=== PATIENT | male | born 1980 | race Hispanic/Latino ===

== ENCOUNTER 2019-02-15 12:24 | Emergency (ER) | payer BC, OTHER ==
[2019-02-15] MEDS ORDERED: KETOROLAC TROMETHAMINE 60 MG/2 ML VIAL ONE (12:51)
[2019-02-15 13:33] LABS: APPEARANCE,URINE Clear (CLEAR); BILIRUBIN,URINE Negative (NEGATIVE); COLOR,URINE Yellow (YELLOW); GLUCOSE, URINE (UA) Negative (NEGATIVE); KETONES,URINE Negative (NEGATIVE); LEUKOCYTE ESTERASE ,URINE Negative (NEGATIVE); NITRATE,URINE Negative (NEGATIVE); OCCULT BLOOD,URINE Negative (NEGATIVE); PROTEIN,URINE Negative (NEGATIVE); UROBILINOGEN,URINE 0.2 mg/dL (0.2-1.0)
[2019-02-15 13:40] LABS: AMPHET/METH SCREEN,URINE NEGATIVE (NEGATIVE); BARBITURATE SCREEN, URINE NEGATIVE (NEGATIVE); BENZODIAZEPINES SCREEN,URINE NEGATIVE (NEGATIVE); CANNABINOID SCREEN,URINE NEGATIVE (NEGATIVE); COCAINE SCREEN,URINE NEGATIVE (NEGATIVE); OPIATE SCREEN,URINE NEGATIVE (NEGATIVE); PHENCYCLIDINE SCREEN,URINE NEGATIVE (NEGATIVE)
[2019-02-15] MEDS ORDERED: LORATADINE 10 MG TABLET ONE (14:22)
== END 2019-02-15 15:25 | disposition home or self-care (01) ==
LOC: EDH 12:24
DX: M43.16 Spondylolisthesis, lumbar region (principal); E11.9 Type 2 diabetes mellitus without complications; I10 Essential (primary) hypertension; Z98.890 Other specified postprocedural states; Z88.8 Allergy status to other drugs, medicaments and biological substances; Z87.891 Personal history of nicotine dependence
CPT/HCPCS: 74176; 80305; 81003; 96372; 99285; J1885

== ENCOUNTER 2021-06-14 18:09 | Emergency (ER) | payer BC, OTHER ==
[~2021-06-14] VITALS: Ht 185.4 cm; Wt 170.1 kg
[2021-06-14 18:53] LABS: BASOPHILS % (AUTO) 0.3 % (0.0-5.0); EOSINOPHILS % (AUTO) 0.8 % (0.0-8.0); HEMATOCRIT 42.3 % (42-54); LYMPHOCYTES % (AUTO) 31.4 % (21.0-51.0); MEAN CORPUSCULAR VOLUME 85.1 fL (79-99); MONOCYTES % (AUTO) 6.5 % (3.0-13.0); NEUTROPHILS % (AUTO) 60.6 % (40.0-77.0); PLATELET COUNT (AUTO) 252 K/uL (130-400); RED BLOOD CELL COUNT(AUTO) 4.97 MIL/uL (4.50-6.20); RED CELL DISTRIBUTION WIDTH 13.2 % (11.0-15.5)
[2021-06-14 19:01] LABS: CREATININE 1.1 mg/dL (0.5-1.5); POTASSIUM 3.8 mmol/L (3.5-5.1)
[2021-06-14 19:06] LABS: ALBUMIN 3.7 g/dL (3.5-5.0); BILIRUBIN,TOTAL 0.3 mg/dL (0.2-1.0); CRP QUANTITATIVE 5.7 mg/L (0.00-9.0); TOTAL PROTEIN, SERUM 7.8 g/dL (6.0-8.3)
[2021-06-14 20:16] VITALS: BP 126/73
== END 2021-06-14 20:44 | disposition home or self-care (01) ==
LOC: EDH 18:09
DX: K42.9 Umbilical hernia without obstruction or gangrene (principal); E11.9 Type 2 diabetes mellitus without complications; E66.9 Obesity, unspecified; Z68.42 Body mass index [BMI] 45.0-49.9, adult; Z88.8 Allergy status to other drugs, medicaments and biological substances
CPT/HCPCS: 36415; 74176; 80053; 85025; 86140

== ENCOUNTER 2022-08-05 09:50 | Emergency (ER) | payer OTHER ==
[~2022-08-05] VITALS: Ht 185.4 cm; Wt 150.1 kg
[2022-08-05 10:17] LABS: BASOPHILS % (AUTO) 0.5 % (0.0-5.0); EOSINOPHILS % (AUTO) 1.7 % (0.0-8.0); HEMATOCRIT 47.2 % (42-54); LYMPHOCYTES % (AUTO) 36.1 % (21.0-51.0); MEAN CORPUSCULAR HEMOGLOBIN 29.3 pg (27.0-33.0); MEAN CORPUSCULAR VOLUME 83.7 fL (79-99); MONOCYTES % (AUTO) 5.6 % (3.0-13.0); NEUTROPHILS % (AUTO) 55.9 % (40.0-77.0); PLATELET COUNT (AUTO) 291 K/uL (130-400); RED BLOOD CELL COUNT(AUTO) 5.64 MIL/uL (4.50-6.20); RED CELL DISTRIBUTION WIDTH 13.5 % (11.0-15.5); WHITE BLOOD COUNT (AUTO) 8.2 K/uL (4.8-10.8)
[2022-08-05 10:27] LABS: CREATININE 0.9 mg/dL (0.5-1.5); POTASSIUM 3.9 mmol/L (3.5-5.1)
[2022-08-05 10:32] LABS: ALBUMIN 3.8 g/dL (3.5-5.0)
[2022-08-05 10:41] LABS: APPEARANCE,URINE SL CLOUDY (CLEAR); BILIRUBIN,URINE NEGATIVE (NEGATIVE); COLOR,URINE YELLOW (YELLOW); GLUCOSE, URINE (UA) >=1000 mg/dL (NEGATIVE); KETONES,URINE NEGATIVE (NEGATIVE); LEUKOCYTE ESTERASE ,URINE NEGATIVE Leu/uL (NEGATIVE); NITRATE,URINE NEGATIVE (NEGATIVE); OCCULT BLOOD,URINE NEGATIVE (NEGATIVE); PH,URINE 7.5 (5.0-8.0); PROTEIN,URINE TRACE mg/dL (NEGATIVE); UROBILINOGEN,URINE 0.2 mg/dL (0.2-1.0)
[2022-08-05 10:51] LABS: BACTERIA,URINE RARE /HPF (None Seen); MUCUS,URINE RARE LPF (None Seen); SQUAMOUS EPITHELIAL CELL,UR RARE /HPF (0-2)
[2022-08-05] MEDS ORDERED: KETOROLAC 15MG/ML VIAL (15MG/ML) IV SCH (12:30)
[2022-08-05] MEDS ORDERED: ONDANSETRON 4MG INJ IVP SCH (12:30)
[2022-08-05] MEDS ORDERED: MORPHINE 4 MG SYG IVP SCH (12:30)
[2022-08-05] MEDS ORDERED: 0.9%NACL 1000ML 1,000 ML IV ONE (12:30)
[2022-08-05] MEDS ORDERED: IOHEXOL 350 MG/ML 100ML INFUS..BTL IV ONE (16:55)
[2022-08-05] MEDS ORDERED: ONDA4TAB10 PO (17:51)
[2022-08-05] MEDS ORDERED: POLY17PO4 PO (17:51)
[2022-08-05 18:24] VITALS: BP 124/78
== END 2022-08-05 18:31 | disposition home or self-care (01) ==
LOC: EDH 09:50
DX: R10.11 Right upper quadrant pain (principal); I10 Essential (primary) hypertension; E66.9 Obesity, unspecified; E11.9 Type 2 diabetes mellitus without complications; Z88.8 Allergy status to other drugs, medicaments and biological substances; Z68.41 Body mass index [BMI] 40.0-44.9, adult
CPT/HCPCS: 99285; 74177; 96374; 76705; 96375; 84484; 80053; 83690; 85025; 81001; 36415; 93005 ×2; J7030; J2405; J2270; J1885; Q9967